=== PATIENT | female | born 1960 | race Caucasian/White ===

== ENCOUNTER 2017-04-07 09:27 | Day surgery (SDC) | payer OTHER ==
[2017-04-05 16:23] VITALS: BP 111/63
[~2017-04-07] VITALS: Ht 172.7 cm; Wt 84.0 kg
[~2017-04-07 09:27] MED LIST: ATOR10TA PO; LEVO88TA2 PO
[2017-04-07] MEDS ORDERED: LACTATED RINGERS 1,000 ML IV SCH (09:43)
[2017-04-07 09:52] VITALS: BP 111/63
[2017-04-07] MEDS ORDERED: ROPIvacaine/PF 0.5%, 30 ML ONE (10:47)
[2017-04-07] MEDS ORDERED: LIDOCAINE/PF 1%-EPI 1:200K, 30ML ONE (10:47)
[2017-04-07] MEDS ORDERED: SCOPOLAMINE PATCH, 1.5MG PATCH.TD72 TD ONE (10:56)
[2017-04-07] MEDS ORDERED: MIDAZOLAM 1 MG/ML, 2ML ONE (11:01)
[2017-04-07] MEDS ORDERED: FENTANYL PF 100 MCG/2ML ONE ×2 (11:01→12:03)
[2017-04-07] MEDS ORDERED: CEFAZOLIN 1,000 MG ONE (11:07)
[2017-04-07] MEDS ORDERED: ONDANSETRON 2MG/ML, 2ML ONE (11:07)
[2017-04-07] MEDS ORDERED: DEXAMETHASONE 4 MG/ML, 1ML ONE (11:07)
[2017-04-07] MEDS ORDERED: PROPOFOL 10 MG/ML, 20ML ONE (11:07)
[2017-04-07] MEDS ORDERED: METOCLOPRAMIDE 5 MG/ML, 2ML ONE (11:07)
[2017-04-07] MEDS ORDERED: KETOROLAC 30 MG/1 ML ONE (11:07)
[2017-04-07] MEDS ORDERED: METOPROLOL 1 MG/ML, 5ML IV PRN (12:00)
[2017-04-07] MEDS ORDERED: LABETALOL 5MG/ML, 20ML IV PRN (12:00)
[2017-04-07] MEDS ORDERED: OXYcodone 5 MG/5 ML ORAL.SOL UDC PO PRN (12:00)
[2017-04-07] MEDS ORDERED: ONDANSETRON 2MG/ML, 2ML IVPush PRN (12:00)
[2017-04-07] MEDS ORDERED: ACETAMINOPHEN 325 MG TABLET PO PRN (12:00)
[2017-04-07] MEDS ORDERED: ALBUTEROL SULFATE 2.5 MG/3 ML NPPB PRN (12:00)
[2017-04-07] MEDS ORDERED: EPHEDRINE 50 MG/ML, 1ML IVPush PRN (12:00)
[2017-04-07] MEDS ORDERED: MEPERIDINE/PF 25MG/0.5ML IVPush PRN (12:00)
[2017-04-07] MEDS ORDERED: hydrALAzine 20 MG/ML, 1ML IV PRN (12:00)
[2017-04-07] MEDS ORDERED: ACETAMINOPHEN 650 MG/20.3 ML UDC ONE (12:03)
[2017-04-07] MEDS ORDERED: OXYcodone 5 MG/5 ML ORAL.SOL UDC ONE (12:03)
[2017-04-07] MEDS: FENTANYL PF 100 MCG/2ML IV PRN ×2 (12:08→12:29)
[2017-04-07] MEDS ORDERED: HYDROmorphone 2 MG/ML, 1ML ONE (12:35)
[2017-04-07] MEDS: HYDROmorphone 1 MG/ML, 1ML IV PRN ×3 (12:38→12:59)
== END 2017-04-07 15:25 | disposition home or self-care (01) ==
LOC: OUT 09:27
PROVIDERS: ATTEND Orthopaedic Surgery
DX: S83.231A Complex tear of medial meniscus, current injury, right knee, initial encounter (principal); S83.281A Other tear of lateral meniscus, current injury, right knee, initial encounter; M65.861 Other synovitis and tenosynovitis, right lower leg; E03.9 Hypothyroidism, unspecified; E78.5 Hyperlipidemia, unspecified; Z88.2 Allergy status to sulfonamides; M19.90 Unspecified osteoarthritis, unspecified site; X58.XXXA Exposure to other specified factors, initial encounter; Y93.9 Activity, unspecified; Y92.9 Unspecified place or not applicable; Y99.9 Unspecified external cause status
CPT/HCPCS: 29880; J0690; J1100; J1170; J1885; J2405; J2704; J2765; J2795; J3010; J3490; J7120

== ENCOUNTER 2017-08-16 11:25 | Day surgery (SDC) | payer OTHER ==
[~2017-08-16] VITALS: Ht 172.7 cm; Wt 78.6 kg
[~2017-08-16 11:25] MED LIST changes: +EPINEPHRINE 1 MG/ML, 1ML ONE; +LIDOCAINE/PF 1%, 30ML ONE; +ROPIvacaine/PF 0.5%, 30 ML ONE
[2017-08-16] MEDS ORDERED: MIDAZOLAM 1 MG/ML, 2ML ONE (11:30)
[2017-08-16] MEDS ORDERED: FENTANYL PF 100 MCG/2ML ONE ×2 (11:30→13:20)
[2017-08-16] MEDS ORDERED: LACTATED RINGERS 1,000 ML IV SCH ×2 (11:43→12:02)
[2017-08-16 11:56] VITALS: BP 121/78
[2017-08-16] MEDS ORDERED: CEFAZOLIN 1,000 MG ONE (11:56)
[2017-08-16] MEDS ORDERED: PROPOFOL 10 MG/ML, 20ML ONE ×2 (11:56→12:40)
[2017-08-16] MEDS ORDERED: ONDANSETRON 2MG/ML, 2ML ONE (11:56)
[2017-08-16] MEDS ORDERED: DEXAMETHASONE 4 MG/ML, 1ML ONE (11:56)
[2017-08-16] MEDS ORDERED: KETOROLAC 30 MG/1 ML ONE (12:56)
[2017-08-16] MEDS ORDERED: METOCLOPRAMIDE 5 MG/ML, 2ML ONE (12:59)
[2017-08-16] MEDS ORDERED: LABETALOL 5MG/ML, 20ML IV PRN (13:00)
[2017-08-16] MEDS ORDERED: LORazepam 2 MG/ML, 1ML IVPush PRN (13:00)
[2017-08-16] MEDS ORDERED: ONDANSETRON 2MG/ML, 2ML IVPush PRN (13:00)
[2017-08-16] MEDS ORDERED: OXYcodone 5 MG/5 ML ORAL.SOL UDC PO PRN (13:00)
[2017-08-16] MEDS ORDERED: HYDROmorphone 1 MG/ML, 1ML IV PRN (13:00)
[2017-08-16] MEDS ORDERED: ACETAMINOPHEN 325 MG TABLET PO PRN (13:00)
[2017-08-16] MEDS ORDERED: MEPERIDINE/PF 25MG/0.5ML IVPush PRN (13:00)
[2017-08-16] MEDS ORDERED: DIAZEPAM 5 MG/ML, 2ML IVPush PRN (13:00)
[2017-08-16] MEDS ORDERED: MIDAZOLAM 1 MG/ML, 2ML IV PRN (13:00)
[2017-08-16] MEDS ORDERED: hydrALAzine 20 MG/ML, 1ML IV PRN (13:00)
[2017-08-16] MEDS ORDERED: ALBUTEROL/IPRATROPIUM 2.5MG/0.5MG, 3 ML NPPB PRN (13:00)
[2017-08-16] MEDS ORDERED: PROMETHAZINE 25 MG/ML, 1ML IV PRN (13:00)
[2017-08-16] MEDS ORDERED: OXYcodone 5 MG/5 ML ORAL.SOL UDC ONE (13:20)
[2017-08-16] MEDS ORDERED: ACETAMINOPHEN 650 MG/20.3 ML UDC ONE (13:20)
[2017-08-16] MEDS: FENTANYL PF 100 MCG/2ML IV PRN ×3 (13:25→13:43)
[2017-08-16] MEDS ORDERED: ONDANSETRON ODT 4 MG ONE (16:33)
[2017-08-16] MEDS ORDERED: ONDANSETRON ODT 4 MG PO ONE (17:00)
== END 2017-08-16 17:05 ==
LOC: OUT 11:25
PROVIDERS: ATTEND Orthopaedic Surgery
DX: S83.242A Other tear of medial meniscus, current injury, left knee, initial encounter (principal); S83.282A Other tear of lateral meniscus, current injury, left knee, initial encounter; M65.862 Other synovitis and tenosynovitis, left lower leg; E03.9 Hypothyroidism, unspecified; E78.5 Hyperlipidemia, unspecified; Z86.39 Personal history of other endocrine, nutritional and metabolic disease; Z87.39 Personal history of other diseases of the musculoskeletal system and connective tissue; Z88.1 Allergy status to other antibiotic agents; X58.XXXA Exposure to other specified factors, initial encounter; Y93.89 Activity, other specified; Y92.89 Other specified places as the place of occurrence of the external cause; Y99.8 Other external cause status
CPT/HCPCS: 29880; J0171; J0690; J1100; J1885; J2250; J2405; J2704; J2765; J2795; J3010; J3490; J7120; Q0162